=== PATIENT | male | born 1975 | race Caucasian/White ===

== ENCOUNTER 2022-10-06 19:37 | Emergency (ER) | payer SELFPAY ==
--- NOTE | ~2022-10-06 | XR_ITS ---
EXAMINATION: XR chest 2V Exam Date/Time: 10/06/2022 19:50 CDT HISTORY: chest pain WITH TIGHTNESS, SMOKER Comparison: None available. RESULT: Lines, tubes, and devices: None. Lungs and pleura: Clear. Cardiomediastinal silhouette: Normal. Other: No acute osseous or upper abdominal finding. IMPRESSION: No acute cardiopulmonary process. Reviewed, dictated and finalized at location K.
--- NOTE | 2022-10-06 19:38 | ECG_ITS ---
Measurements Intervals [place] Rate: 109 P: 67 NM: 123 QRS: 61 QRSD: 85 T: 227 QT: 304 QTc: 409 Interpretive Statements SINUS TACHYCARDIA POSSIBLE LEFT ATRIAL ENLARGEMENT LEFT VENTRICULAR HYPERTROPHY AND ST-T CHANGE ABNORMAL ECG NO PREVIOUS ECG AVAILABLE FOR COMPARISON Electronically Signed On 10-07-2022 16:53:23 CDT by Yomi Worley M.D.
[2022-10-06 19:39] VITALS: BP 148/96; PULSE 116; RESP 18; TEMP 36.9; O2SAT 98
[2022-10-06 19:56] LABS: Basophils Percent Auto 0.3 % (0.2-1.2); Eosinophils Absolute Auto 0.1 K/mm3 (0-0.3); Eosinophils Percent Auto 1.2 % (0-4.4); Hematocrit 43.8 % (42.0-52.0); Hemoglobin 15.2 g/dL (14.0-18.0); Immature Granulocyte Absolute 0.02 K/mm3 (0.00-0.031); Immature Granulocyte Percent A 0.2 % (0-0.5); Lymphocytes Absolute Auto 3.35 K/mm3 (0.9-3.2); Lymphocytes Percent Auto 37.2 % (18.3-44.2); Mean Corpuscular HGB Conc 34.7 g/dl (32-36); Mean Corpuscular Volume 100.9 fl (80-100); Monocytes Absolute Auto 0.6 K/mm3 (0.1-0.6); Monocytes Percent Auto 6.5 % (2.6-8.5); Neutrophils Absolute Auto 4.9 K/mm3 (1.3-6.7); Neutrophils Percent Auto 54.6 % (45.5-73.1); Platelet Count Result 240 k/mm3 (150-375); Red Blood Count 4.34 M/mm3 (4.6-6.20); Red Cell Distribution Width 12.6 % (11.5-14.5)
[2022-10-06 20:07] LABS: INR 0.9; Prothrombin Time 11.9 Seconds (11.1-14.7)
[2022-10-06 20:08] LABS: Alanine Aminotransferase 28 U/L (6-50); Albumin Level 4.8 g/dL (3.5-5.1); Alkaline Phosphatase 89 U/L (38-126); Anion Gap 12 mmol/L (8-16); Aspartate Amino Transferase 27 U/L (17-59); Bilirubin,Total 0.3 mg/dL (0.2-1.3); Blood Urea Nitrogen 13 mg/dL (9-20); Calcium 9.2 mg/dL (8.4-10.2); Carbon Dioxide 22 mmol/L (22-30); Chloride 107 mmol/L (98-107); Estimated CRCL calculation 62 ml/min; Estimated Glomerular Filt Rate 59; Glucose 87 mg/dL (65-110); Lipase 71 U/L (23-300); Partial Thromboplastin Time 29.2 SECONDS (22.3-36.8); Potassium 4.3 mmol/L (3.4-5.0); Sodium 141 mmol/L (137-145)
[2022-10-06 20:19] LABS: Troponin I < 0.012 ng/mL (0.000-0.034)
--- NOTE | 2022-10-06 20:45 | PC.NURSE ---
Patient approached intake desk and informed sports writer that he is feeling much better and he doesn't want to be seen anymore. Patient ambulated into the triage room and cell manager removed his EMS IV. Patient denies any more chest pain and stated, I think this is just from anxiety due to my concussion. [facility] . Patient alert and ambulatory upon leaving the ED in no distress.
== END 2022-10-06 20:56 | disposition left against medical advice (07) ==
LOC: ANHED 20:51
PROVIDERS: Emergency Provider Emergency Medicine
DX: R07.9 Chest pain, unspecified (principal)
CPT/HCPCS: 36415; 71046; 80053; 83690; 84484; 85025; 85610; 85730; 93005; 99199

== ENCOUNTER 2023-04-13 00:27 | Emergency (ER) | payer OTHER, SELFPAY ==
[2023-04-13 00:25] VITALS: BP 170/101; PULSE 105; RESP 16; TEMP 36.9; O2SAT 100
--- NOTE | 2023-04-13 00:33 | ECG_ITS ---
Measurements Intervals [place] Rate: 109 P: 70 NE: 133 QRS: 59 QRSD: 92 T: 265 QT: 337 QTc: 454 Interpretive Statements SINUS TACHYCARDIA NONSPECIFIC ST & T-WAVE ABNORMALITY Electronically Signed On 04-13-2023 12:58:44 CDT by Cong Guerra M.D.
--- NOTE | 2023-04-13 00:40 | ED.GENADULT ---
HPI - General Adult General Chief complaint: Anxiety Stated complaint: Anxiety, +ETOH Time Seen by Provider: 04/13/23 00:30 History of Present Illness HPI narrative: Patient is a 38-year-old gentleman who presents the Chief complaint of anxiety. The patient states that EMS was called this evening after he would not get up and walk patient states he read more after he is not a large amount sugars on his lower extremities and was seen in urgent care started on prednisone and was taking topical primary and also to pick Benadryl the patient states that multiple trigger bites patient reports itching and driving and did not help reports a large amount of alcohol tonight which is normal for him patient also has history of HIV bipolar disorder schizophrenia the patient is known to the [facility] Related Data Allergies Allergy/AdvReac Type Severity Reaction Status Date / Time No Known Allergies Allergy Verified 04/13/23 00:37 Review of Systems Review of Systems: A 10 system review of systems was completed on the patient and is negative except for what is stated in the HPI. Nursing and ancillary documentation was reviewed. [facility] Social History Social History Substance use type: other Exam Narrative: GENERAL: Well-appearing, well-nourished, and in no acute distress. HEAD: Normocephalic, atraumatic. EYES: PERRLA and EOMI. ENT: Nares clear, no rhinorrhea or epistaxis. Mucous membranes moist. NECK: Supple. CHEST: Clear to auscultation. No respiratory distress. HEART: Regular rate and rhythm. No murmur heard. Normal peripheral pulses. ABDOMEN: Soft, nontender, nondistended, normal active bowel sounds. EXTREMITIES: Normal range of motion. No edema. SKIN: Warm, dry, multiple fingers right more than the lower extremities. NEURO: No focal deficits. Alert and oriented x3. PSYCH: Normal mood and affect. Course Vital Signs Vital signs: Vital Signs Temperature 36.9 C 04/13/23 00:25 Pulse Rate 105 H 04/13/23 00:25 Respiratory Rate 16 04/13/23 00:25 Blood Pressure 170/101 H 04/13/23 00:25 Pulse Oximetry 100 04/13/23 00:25 Temperature 36.9 C 04/13/23 00:25 Pulse Rate 82 10/15/23 03:31 Respiratory Rate 15 04/13/23 03:31 Blood Pressure 157/94 H 04/13/23 03:31 Pulse Oximetry 97 04/13/23 03:31 Medical Decision Making Vital Signs Vital Signs: Vital Signs Temperature 36.9 C 04/13/23 00:25 Pulse Rate 105 H 04/13/23 00:25 Respiratory Rate 16 04/13/23 00:25 Blood Pressure 170/101 H 04/13/23 00:25 Pulse Oximetry 100 04/13/23 00:25 Temperature 36.9 C 04/13/23 00:25 Pulse Rate 82 04/13/23 03:31 Respiratory Rate 15 04/13/23 03:31 Blood Pressure 157/94 H 04/13/23 03:31 Pulse Oximetry 97 04/13/23 03:31 Lab Data 04/13/23 00:52 04/13/23 00:52 Labs: Lab Results 04/13/23 04/13/23 Range/Units 00:52 00:58 WBC 6.5 (4.5-10.0) K/mm3 RBC 4.53 L (4.6-6.20) M/mm3 Hgb 16.6 (14.0-18.0) g/dL Hct 46.0 (42.0-52.0) % MCV 101.5 H (80-100) fl MCH 36.6 H (26-34) pg MCHC 36.1 H (32-36) g/dl RDW 13.1 (11.5-14.5) % Plt Count 171 (150-375) k/mm3 MPV 9.4 (7.4-10.4) fl Immature Gran % (Auto) 0.3 (0-0.5) % Neut % (Auto) 72.0 (45.5-73.1) % Lymph % (Auto) 24.3 (18.3-44.2) % [place] % (Auto) 3.1 (2.6-8.5) % Eos % (Auto) 0.0 (0-4.4) % Baso % (Auto) 0.3 (0.2-1.2) % Lymph # (Auto) 1.58 (0.9-3.2) K/mm3 [place] # (Auto) 0.2 (0.1-0.6) K/mm3 Eos # (Auto) 0.0 (0-0.3) K/mm3 Baso # (Auto) 0.0 (0.0-0.1) K/mm3 Abs Immat Gran (auto) 0.02 (0.00-0.031) K/mm3 Absolute Neuts (auto) 4.7 (1.3-6.7) K/mm3 Absolute Nucleated RBC 0.0 (0.0-0.012) K/mm3 Nucleated RBC % 0.0 (0.0-0.2) % Sodium 147 H (137-145) mmol/L Potassium 4.3 (3.4-5.0) mmol/L Chloride 110 H (98-107) mmol/L Carbon Dioxide
[2023-04-13] MEDS: SODIUM CHLORIDE 0.9% IV 1,000 ML 999 ML IV CONT ×2 (00:57→02:21)
[2023-04-13 00:59] LABS: Basophils Percent Auto 0.3 % (0.2-1.2); Hemoglobin 16.6 g/dL (14.0-18.0); Immature Granulocyte Absolute 0.02 K/mm3 (0.00-0.031); Immature Granulocyte Percent A 0.3 % (0-0.5); Lymphocytes Absolute Auto 1.58 K/mm3 (0.9-3.2); Lymphocytes Percent Auto 24.3 % (18.3-44.2); Mean Corpuscular HGB Conc 36.1 g/dl (32-36); Mean Corpuscular Hemoglobin 36.6 pg (26-34); Mean Corpuscular Volume 101.5 fl (80-100); Mean Platelet Volume 9.4 fl (7.4-10.4); Monocytes Absolute Auto 0.2 K/mm3 (0.1-0.6); Monocytes Percent Auto 3.1 % (2.6-8.5); Neutrophils Absolute Auto 4.7 K/mm3 (1.3-6.7); Platelet Count Result 171 k/mm3 (150-375); Red Blood Count 4.53 M/mm3 (4.6-6.20); Red Cell Distribution Width 13.1 % (11.5-14.5); White Blood Count 6.5 K/mm3 (4.5-10.0)
--- NOTE | 2023-04-13 01:11 | PC.NURSE ---
Pt asked this RN to call mother, Dawna Stoner [phone], to update her on pt status. This RN notified mother that pt was doing well and tests were being ran. We are to call mother if pt is going to be D/C.
[2023-04-13 01:13] LABS: Appearance Urine Clear (Clear); Bacteria Urine None Seen /hpf; Bilirubin Urine Negative (Negative); Blood Urine Negative (Negative); Color Urine Yellow (Yellow); Glucose Urine UA 1+ mg/dL (Negative); Ketones Urine Negative (Negative); Leukocyte Esterase Ur Negative LEU/UL (Negative); Nitrate Urine Negative (Negative); Non Pathogenic Casts 0-2; Protein Urine 1+ mg/dL (Negative); RBC Urine 0-2 /hpf (0-2); Specific Grav Ur 1.013 (1.001-1.035); Squamous Epithelial Cell Urine None seen /hpf (Few); WBC Urine 0-5 /hpf
[2023-04-13 01:16] LABS: Alanine Aminotransferase 44 U/L (6-50); Albumin Level 5.2 g/dL (3.5-5.1); Alkaline Phosphatase 109 U/L (38-126); Anion Gap 16 mmol/L (8-16); Aspartate Amino Transferase 50 U/L (17-59); Bilirubin,Total 0.5 mg/dL (0.2-1.3); Blood Urea Nitrogen 6 mg/dL (9-20); Calcium 10.1 mg/dL (8.4-10.2); Carbon Dioxide 21 mmol/L (22-30); Chloride 110 mmol/L (98-107); Estimated Glomerular Filt Rate > 60; Glucose 107 mg/dL (65-110); Potassium 4.3 mmol/L (3.4-5.0); Sodium 147 mmol/L (137-145)
[2023-04-13 01:28] LABS: Add Urine Microscopic? YES
[2023-04-13 01:34] LABS: Influenza A QL RT-PCR Negative (Negative); Influenza B QL RT-PCR Negative (Negative); SARS-CoV-2 RNA PCR Negative (Negative)
[2023-04-13 01:43] LABS: Thyroid Stimulating Hormone 0.157 uIU/mL (0.465-4.680)
[2023-04-13 01:50] LABS: Amphetamine Screen Urine Negative (Negative); Barbiturate Screen Urine Negative (Negative); Benzodiazepines Screen Urine Positive (Negative); Cannabinoid Screen Urine Negative (Negative); Cocaine Screen Urine Negative (Negative); Methadone Screen Urine Negative (Negative); Opiate Screen Urine Negative (Negative); Phencyclidine Screen Urine Negative (Negative)
[2023-04-13 01:54] LABS: Ethanol 314 mg/dL (<10)
[2023-04-13 02:08] VITALS: BP 154/90; PULSE 110; RESP 14; O2SAT 95
[2023-04-13 02:45] VITALS: BP 147/89; PULSE 79; RESP 15; O2SAT 97
[2023-04-13 03:16] VITALS: BP 143/83; PULSE 88; RESP 16; O2SAT 95
[2023-04-13 03:31] VITALS: BP 157/94; PULSE 82; RESP 15; O2SAT 97
== END 2023-04-13 04:16 | disposition home or self-care (01) ==
PROVIDERS: Emergency Provider Emergency Medicine
DX: F10.120 Alcohol abuse with intoxication, uncomplicated (principal); Y90.8 Blood alcohol level of 240 mg/100 ml or more; T50.901A Poisoning by unspecified drugs, medicaments and biological substances, accidental (unintentional), initial encounter
CPT/HCPCS: 36415; 80053; 80307; 81001; 84443; 85025; 87636; 93005; 96360; 96361; 99283; J7030